=== PATIENT | female | born 1975 | race Caucasian/White ===

== ENCOUNTER 2018-07-28 13:27 | Emergency (ER) | payer SELFPAY ==
[~2018-07-28] VITALS: Ht 175.3 cm; Wt 64.0 kg
[2018-07-28 13:55] LABS: BASO # 0.1 x10^3/uL (0.0-0.2); BASO % 1 % (0-3); EOS # 0.1 x10^3/uL (0.0-0.7); EOS % 1 % (0-3); HEMATOCRIT 40.4 % (36.0-47.0); HEMOGLOBIN 13.3 g/dL (12.0-15.5); LYMPH # 1.7 x10^3/uL (1.0-4.8); LYMPH % 22 % (24-48); MEAN CORPUSCULAR HEMOGLOBIN 27 pg (25-35); MEAN CORPUSCULAR HGB CONC 33 g/dL (31-37); MEAN CORPUSCULAR VOLUME 82 fL (79-100); MONO # 0.5 x10^3/uL (0.0-1.1); MONO % 6 % (0-9); NEUT # 5.5 x10^3uL (1.8-7.7); NEUT % 70 % (31-73); PLATELET COUNT 385 x10^3/uL (140-400); RED BLOOD COUNT 4.96 x10^6/uL (3.50-5.40); RED CELL DISTRIBUTION WIDTH 16.2 % (11.5-14.5); WHITE BLOOD COUNT 7.9 x10^3/uL (4.0-11.0)
[2018-07-28 14:04] LABS: BACTERIA,URINE 0 /HPF (0-FEW); BILIRUBIN,URINE NEG (NEG); CLARITY,URINE CLEAR; COLOR,URINE STRAW; GLUCOSE,URINE NEG (NEG); NITRITE,URINE NEG (NEG); RBC,URINE 0 /HPF (0-2); SQUAMOUS EPITHELIAL CELL,UR OCC /LPF; UROBILINOGEN,URINE 0.2 mg/dL (0.2 mg/dL); WBC,URINE 0 /HPF (0-4)
[2018-07-28 14:06] LABS: PREG TEST PT QUAL NEGATIVE (NEG)
[2018-07-28 14:09] LABS: ALBUMIN 3.8 g/dL (3.4-5.0); CALCIUM 9.4 mg/dL (8.5-10.1); CREATININE 0.8 mg/dL (0.6-1.0); GFR 78.3; TOTAL BILIRUBIN 0.3 mg/dL (0.2-1.0); TOTAL PROTEIN 7.7 g/dL (6.4-8.2)
[2018-07-28] MEDS ORDERED: ONDANSETRON PF 4 MG/2 ML VIAL. IV ONE (14:20)
[2018-07-28] MEDS ORDERED: IOHEXOL 300 MG/ML 75 ML VIAL. IV ONE (14:30)
--- NOTE | 2018-07-28 14:57 | ED.ADGEN ---
Past History Past Medical History: Endometriosis, Migraines, Other Past Surgical History: Other Smoking: Non-smoker, Quit Less Than 1 Year Alcohol Use: None Drug Use: None Adult General Chief Complaint Chief Complaint Left lower quadrant pain HPI HPI Patient is a 42-year-old female presents with intermittent left lower quadrant/ pelvic pain 5 days. Reports increased frequency urgency. No flank pain, nausea vomiting, hematuria. No history of stones. Reports nausea, no vomiting. No constipation or diarrhea. No other acute symptoms or complaints.[] Review of Systems Review of Systems ROS as per HPI All other systems were reviewed and found to be within normal limits, except as documented in this note. Current Medications Current Medications Current Medications Medications (Trade) Dose Ordered Sig/Nasima Start Time Stop Time Status Last Admin Dose Admin Fentanyl Citrate (Fentanyl 2ml Vial) 50 mcg 1X ONCE 07/28/18 14:20 07/28/18 14:21 DC 07/28/18 13:59 50 MCG Iohexol (Omnipaque 300 Mg/ml) 75 ml 1X ONCE 07/28/18 14:30 07/28/18 14:31 DC 07/28/18 14:28 75 ML Ondansetron HCl (Zofran) 4 mg 1X ONCE 07/28/18 14:20 07/28/18 14:21 DC 07/28/18 13:58 4 MG Allergies Allergies Allergies Coded Allergies Type Severity Reaction Last Updated Verified Penicillins Allergy Unknown Shortness of Air 12/16/15 Yes Physical Exam Physical Exam Constitutional: Well developed, well nourished, moderate discomfort for pain [] HENT: Normocephalic, atraumatic, bilateral external ears normal, oropharynx moist, no oral exudates, nose normal. [] Eyes: PERRLA, EOMI, conjunctiva normal, no discharge. [] Neck: Normal range of motion, no tenderness, supple, no stridor. [] Cardiovascular:Heart rate regular rhythm, no murmur [] Lungs & Thorax: Bilateral breath sounds clear to auscultation. [] Abdomen: Bowel sounds normal, soft, LLQ pain/tenderness. [] Skin: Warm, dry, no erythema, no rash. [] Extremities: No tenderness, ROM intact, no edema. [] Neurologic: Alert and oriented X 3, normal motor function, normal sensory function, no focal deficits noted. [] Psychologic: Affect normal, judgement normal, mood normal. [] Current Patient Data Vital Signs Vital Signs Date Time Temp Pulse Resp B/P (MAP) Pulse Ox O2 Delivery O2 Flow Rate FiO2 07/28/18 15:36 67 18 113/73 (86) 98 Room Air 07/28/18 13:37 98.5 Lab Results Laboratory Tests Test 07/28/18 13:45 White Blood Count 7.9 x10^3/uL (4.0-11.0) Red Blood Count 4.96 x10^6/uL (3.50-5.40) Hemoglobin 13.3 g/dL (12.0-15.5) Hematocrit 40.4 % (36.0-47.0) Mean Corpuscular Volume 82 fL (79-100) Mean Corpuscular Hemoglobin 27 pg (25-35) Mean Corpuscular Hemoglobin Concent 33 g/dL (31-37) Red Cell Distribution Width 16.2 % (11.5-14.5) H Platelet Count 385 x10^3/uL (140-400) Neutrophils (%) (Auto) 70 % (31-73) Lymphocytes (%) (Auto) 22 % (24-48) L Monocytes (%) (Auto) 6 % (0-9) Eosinophils (%) (Auto) 1 % (0-3) Basophils (%) (Auto) 1 % (0-3) Neutrophils # (Auto) 5.5 x10^3uL (1.8-7.7) Lymphocytes # (Auto) 1.7 x10^3/uL (1.0-4.8) Monocytes # (Auto) 0.5 x10^3/uL (0.0-1.1) Eosinophils # (Auto) 0.1 x10^3/uL (0.0-0.7) Basophils # (Auto) 0.1 x10^3/uL (0.0-0.2) Urine Collection Type Unknown Urine Color Straw Urine Clarity Clear Urine pH 7.0 Urine Specific [place] 1.010 Urine Protein Neg (NEG-TRACE) Urine Glucose (UA) Neg mg/dL (NEG) Urine Ketones (Stick) Neg mg/dL (NEG) Urine Blood Neg (NEG) Urine Nitrite Neg (NEG) Urine Bilirubin Neg (NEG) Urine Urobilinogen Dipstick 0.2 mg/dL (0.2 mg/dL) Urine Leukocyte Esterase Neg (NEG) Urine RBC 0 /HPF (0-2) Urine WBC 0 /HPF (0-4) Urine Squamous Epithelial Cells Occ /LPF Urine Bacteria 0 /HPF (0-FEW) Sodium Level 139 mmol/L (136-145) Potassium Level 4.0 mmol/L (3.5-5.1) Chloride Level 103 mmol/L (98-107) Carbon Dioxide Level 28 mmol/L (21-32) Anion Gap 8 (6-14) Blood Urea Nitrogen 8 mg/dL (7-20) Creatinine 0.8 mg/dL (0.6-1.0) Estimated GFR (Cockcroft-Gault) 78.3 BUN/Creatinine Ratio 10 (6-20) Glucose Level 102 mg/dL (70-99) H Calcium Level 9.4 mg/dL (8.5-10.1) Total Bilirubin 0.3 mg/dL (0.2-1.0) Aspartate Amino Transferase (AST) 12 U/L (15-37) L Alanine Aminotransferase (ALT) 19 U/L (14-59) Alkaline Phosphatase 74 U/L (46-116) Total Protein 7.7 g/dL (6.4-8.2) Albumin 3.8 g/dL (3.4-5.0) Albumin/Globulin Ratio 1.0 (1.0-1.7) Lipase 98 U/L (73-393) Serum Test, Qualitative Negative (NEG) EKG EKG [] Radiology/Procedures Radiology/Procedures [CT abdomen pelvis: Short segment of mildly dilated small bowel left upper quadrant with filling defect concerning for transient intussusception, ] Course & Med Decision Making Course & Med Decision Making Pertinent Labs and Imaging studies reviewed. (See chart for details) [Persistent pain with findings of intussusception.] Final Impression Final Impression [1. Abdominal pain 2. Intussusception] Dragon Disclaimer Dragon Disclaimer This electronic medical record was generated, in whole or in part, using a voice recognition dictation system. MARK LAND DO Jul 28, 2018 14:57
--- NOTE | 2018-07-28 15:20 | RAD ---
CT of the abdomen and pelvis with contrast 07/28/2018 INDICATION: 1.5 weeks of left lower quadrant pain. COMPARISON STUDY: None FINDINGS: Multidetector CT imaging of the abdomen and pelvis was performed following the administration of IV contrast. The bilateral lung bases demonstrate emphysematous changes. Mild atelectasis is seen in lung bases as well. Liver and gallbladder are unremarkable. Spleen demonstrates changes of prior granulomatous disease. No acute pancreatic changes are identified. Scattered renal cysts are present bilaterally. Some cysts are too small to adequately be characterized. In the left upper quadrant of the abdomen there is a mildly dilated loop of small bowel. There is a filling defect within the loop of dilated bowel, and a small fluid level also appears to be the proximal side of it. Evaluation is limited without enteric contrast. (Coronal image 30, axial image 22, sagittal image 15). An incidental etiology is favored such as transient intussusception. However a mass cannot be completely excluded on the basis of this exam however. The large bowel is relatively decompressed. No evidence of appendicitis is seen. Fluid is present in the endometrial canal. Correlate with phase of menstrual cycle. Uterus and adnexa otherwise grossly unremarkable. Bladder is predominantly decompressed but otherwise grossly unremarkable. No gross pneumoperitoneum is identified. No significant free fluid is seen in the abdomen or pelvis. Impression: 1.Short segment mildly dilated loop of small bowel left upper quadrant. Filling defect. Evaluation limited without enteric contrast. Favor transient intussusception . A mass cannot be completely excluded on basis of this study. Consider repeat exam without additional tendon tear contrast or CT enterography. 2. No other acute intra-abdominal abnormality is seen CT DOSING PQRS STATEMENT: One or more of the following individualized dose reduction techniques were utilized for this examination: 1. Automated exposure control 2. Adjustment of the mA and/or kV according to patient size 3. Use of iterative reconstruction technique Electronically signed by: Emiliano Nichols MD (07/28/2018 3:16 PM) [id number]
[2018-07-28 15:36] VITALS: BP 113/73
== END 2018-07-28 18:09 | disposition short-term general hospital (02) ==
LOC: ER 13:27
DX: K56.1 Intussusception (principal); R10.32 Left lower quadrant pain; R10.2 Pelvic and perineal pain; G43.909 Migraine, unspecified, not intractable, without status migrainosus; Z87.891 Personal history of nicotine dependence; Z88.0 Allergy status to penicillin
CPT/HCPCS: 36415; 74177; 80053; 81001; 83690; 84703; 85025; 96374; 96375; 99285; J2405; J3010; Q9967

== ENCOUNTER 2021-09-09 12:19 | Emergency (ER) | payer SELFPAY ==
[~2021-09-09] VITALS: Ht 175.3 cm; Wt 63.6 kg
[2021-09-09] MEDS ORDERED: MORPHINE SULFATE 4 MG/ML DISP.SYRIN. IV PRN (12:45)
[2021-09-09] MEDS ORDERED: ONDANSETRON PF 4 MG/2 ML VIAL. IVP ONE (12:45)
[2021-09-09 12:56] LABS: BASO # 0.1 x10^3/uL (0.0-0.2); BASO % 1 % (0-3); EOS # 0.4 x10^3/uL (0.0-0.7); EOS % 5 % (0-3); HEMATOCRIT 43.7 % (36.0-47.0); HEMOGLOBIN 14.5 g/dL (12.0-15.5); LYMPH # 2.9 x10^3/uL (1.0-4.8); LYMPH % 39 % (24-48); MEAN CORPUSCULAR HEMOGLOBIN 29 pg (25-35); MEAN CORPUSCULAR HGB CONC 33 g/dL (31-37); MEAN CORPUSCULAR VOLUME 86 fL (79-100); MONO # 0.5 x10^3/uL (0.0-1.1); MONO % 7 % (0-9); NEUT # 3.7 x10^3uL (1.8-7.7); NEUT % 49 % (31-73); PLATELET COUNT 325 x10^3/uL (140-400); RED BLOOD COUNT 5.06 x10^6/uL (3.50-5.40); WHITE BLOOD COUNT 7.5 x10^3/uL (4.0-11.0)
--- NOTE | 2021-09-09 12:59 | EKG ---
[address] [address] Test Date: 2021-09-09 Test Time: 12:23:52 Pat Name: ALYSA REHMAN Department: Room: Gender: F Grid Inspector: ANA ROSA : 1975 Requested By: ROSE RIVERA Order Number: [id number] Reading MD: Dameon Thompson Measurements Intervals [place] Rate: 79 P: 62 [place]: 182 QRS: 50 QRSD: 84 T: 63 QT: 364 QTc: 418 Interpretive Statements SINUS RHYTHM NO SPECIFIC ECG ABNORMALITIES RI6.02 No previous ECG available for comparison Electronically Signed On 09-11-2021 9:30:34 BOOM MAN by Dameon Thompson
[2021-09-09 13:03] LABS: CALCIUM 9.4 mg/dL (8.5-10.1); CREATININE 0.8 mg/dL (0.6-1.0); GFR 77.2; POTASSIUM 3.5 mmol/L (3.5-5.1)
--- NOTE | 2021-09-09 13:08 | RAD ---
INDICATION: Reason: cp / Spl. Instructions: / History: COMPARISON: None. FINDINGS: Single view of chest obtained. Disorganized pulmonary markings bilaterally with mild interstitial opacities. Patchy opacities at the lung bases. Air underneath the left hemidiaphragm. Cardiac silhouette is unremarkable IMPRESSION: * Patchy opacities at the lung bases which could be from infiltrate or edema. * Interstitial opacities bilaterally. Possible causes include interstitial infiltrate, edema or inte rstitial lung disease and would correlate as to whether the patient has any known history of intersti tial lung disease. * Air underneath the left hemidiaphragm. Given the location the most common cause would be air withi n the stomach bubble or bowel but if additional clarification is desired lateral radiograph or CT cou ld confirm. Electronically signed by: Raymond Lozano MD (09/09/2021 1:05 PM) [id number]
[2021-09-09 13:16] LABS: ALBUMIN 3.7 g/dL (3.4-5.0); ALBUMIN/GLOBULIN RATIO 1.1 (1.0-1.7); TOTAL BILIRUBIN 0.3 mg/dL (0.2-1.0); TOTAL PROTEIN 7.2 g/dL (6.4-8.2)
--- NOTE | 2021-09-09 13:34 | PHYS DOC ---
Past History Past Medical History: Endometriosis, Migraines, Other (ROSE RIVERA APRN) Past Surgical History: No Surgical History (ROSE RIVERA APRN) Smoking: Non-smoker, Quit Less Than 1 Year Alcohol Use: None Drug Use: None (ROSE RIVERA APRN) General Adult EDM: Chief Complaint: CHEST PAIN HPI: HPI: Patient is a 45-year-old female presents with mid sternal chest pain. Patient states that pain started a week ago. Pain is worse with movement, deep breathing, laying down. Pain is also reproducible. Denies recent illness or i njury. Denies taking anything at home for pain. History of migraines. Patient recently quit smoking. (ROSE RIVERA APRN) Review of Systems: Review of Systems: ROS At least 10 ROS systems have been reviewed and are negative except as documented in the HPI. General: Negative except as outlined in HPI above. Skin: Negative except as outlined in HPI above. HEENT: Negative except as outlined in HPI above. Neck: Negative except as outlined in HPI above. Respiratory: Negative except as outlined in HPI above.. Cardiovascular: Negative except as outlined in HPI above. Abdomen: Negative except as outlined in HPI above. : Negative except as outlined in HPI above. Back/MSK: Negative except as outlined in HPI above. Neuro: Negative except as outlined in HPI above. Psych: Negative except as outlined in HPI above. (ROSE RIVERA APRN) Current Medications: Current Meds: Current Medications Medications (Trade) Dose Ordered Sig/Nasima Start Time Stop Time Status Last Admin Dose Admin Morphine Sulfate (Morphine 4mg Syringe) 4 mg PRN 1X PRN 09/09/21 12:45 09/09/21 13:15 4 MG Ondansetron HCl (Zofran) 4 mg 1X ONCE 09/09/21 12:45 09/09/21 13:07 DC 09/09/21 13:15 4 MG (ROSE RIVERA APRN) Allergies: Allergies: Allergies Coded Allergies Type Severity Reaction Last Updated Verified Penicillins Allergy Unknown Shortness of Air 12/16/15 Yes (ROSE RIVERA APRN) Physical Exam: PE: Constitutional: Well developed, well nourished, no acute distress, non-toxic appearance. [] HENT: Normocephalic, atraumatic, bilateral external ears normal, oropharynx moist, no oral exudates, nose normal. [] Eyes: PERRLA, EOMI, conjunctiva normal, no discharge. [] Neck: Normal range of motion, no tenderness, supple, no stridor. [] Cardiovascular:Heart rate regular rhythm, no murmur [] Lungs & Thorax: Bilateral breath sounds clear to auscultation [] Abdomen: Bowel sounds normal, soft, no tenderness, no masses, no pulsatile masses. [] Skin: Warm, dry, no erythema, no rash. [] Back: No tenderness, no CVA tenderness. [] Extremities: No tenderness, no cyanosis, no clubbing, ROM intact, no edema. [] Neurologic: Alert and oriented X 3, normal motor function, normal sensory function, no focal deficits noted. [] Psychologic: Affect normal, judgement normal, mood normal. [] (ROSE RIVERA APRN) Current Patient Data: Labs: Laboratory Tests Test 09/09/21 12:36 White Blood Count 7.5 x10^3/uL (4.0-11.0) Red Blood Count 5.06 x10^6/uL (3.50-5.40) Hemoglobin 14.5 g/dL (12.0-15.5) Hematocrit 43.7 % (36.0-47.0) Mean Corpuscular Volume 86 fL (79-100) Mean Corpuscular Hemoglobin 29 pg (25-35) Mean Corpuscular Hemoglobin Concent 33 g/dL (31-37) Red Cell Distribution Width 16.0 % (11.5-14.5) H Platelet Count 325 x10^3/uL (140-400) Neutrophils (%) (Auto) 49 % (31-73) Lymphocytes (%) (Auto) 39 % (24-48) Monocytes (%) (Auto) 7 % (0-9) Eosinophils (%) (Auto) 5 % (0-3) H Basophils (%) (Auto) 1 % (0-3) Neutrophils # (Auto) 3.7 x10^3uL (1.8-7.7) Lymphocytes # (Auto) 2.9 x10^3/uL (1.0-4.8) Monocytes # (Auto) 0.5 x10^3/uL (0.0-1.1) Eosinophils # (Auto) 0.4 x10^3/uL (0.0-0.7) Basophils # (Auto) 0.1 x10^3/uL (0.0-0.2) Sodium Level 138 mmol/L (136-145) Potassium Level 3.5 mmol/L (3.5-5.1) Chloride Level 103 mmol/L (98-107) Carbon Dioxide Level 28 mmol/L (21-32) Anion Gap 7 (6-14) Blood Urea Nitrogen 15 mg/dL (7-20) Creatinine 0.8 mg/dL (0.6-1.0) Estimated GFR (Cockcroft-Gault) 77.2 BUN/Creatinine Ratio 19 (6-20) Glucose Level 96 mg/dL (70-99) Calcium Level 9.4 mg/dL (8.5-10.1) Total Bilirubin 0.3 mg/dL (0.2-1.0) Aspartate Amino Transferase (AST) 14 U/L (15-37) L Alanine Aminotransferase (ALT) 23 U/L (14-59) Alkaline Phosphatase 81 U/L (46-116) XZ-Gci-G-Type Natriuretic Peptide 71 pg/mL (0-124) Total Protein 7.2 g/dL (6.4-8.2) Albumin 3.7 g/dL (3.4-5.0) Albumin/Globulin Ratio 1.1 (1.0-1.7) Vital Signs: Vital Signs Date Time Temp Pulse Resp B/P (MAP) Pulse Ox O2 Delivery O2 Flow Rate FiO2 09/09/21 13:15 14 97 09/09/21 12:23 98.1 79 129/83 (98) Room Air (ROSE RIVERA APRN) EKG: EKG: Sinus rhythm. Heart rate 79 bpm. No STEMI. (ROSE RIVERA CNC TECHNICIAN) Radiology/Procedures: Radiology/Procedures: []INDICATION: Reason: cp / Spl. Instructions: / History: COMPARISON: None. FINDINGS: Single view of chest obtained. Disorganized pulmonary markings bilaterally with mild interstitial opacities. Patchy opacities at the lung bases. Air underneath the left hemidiaphragm. Cardiac silhouette is unremarkable IMPRESSION: * Patchy opacities at the lung bases which could be from infiltrate or edema. * Interstitial opacities bilaterally. Possible causes include interstitial infiltrate, edema or interstitial lung disease and would correlate as to whether the patient has any known history of interstitial lung disease. * Air underneath the left hemidiaphragm. Given the location the most common cause would be air within the stomach bubble or bowel but if additional clarification is desired lateral radiograph or CT could confirm. Electronically signed by: Raymond Lozano MD (09/09/2021 1:05 PM) [id number] (ROSE RIVERA APRN) Heart Score: C/O Chest Pain: No Risk Factors: Risk Factors: DM, Current or recent (<one month) smoker, HTN, HLP, family history of CAD, obesity. Risk Scores: Score 0 - 3: 2.5% MACE over next 6 weeks - Discharge Home Score 4 - 6: 20.3% MACE over next 6 weeks - Admit for Clinical Observation Score 7 - 10: 72.7% MACE over next 6 weeks - Early Invasive Strategies (ROSE RIVERA APRN) Course & Med Decision Making: Course & Med Decision Making Pertinent Labs and Imaging studies reviewed. (See chart for details) [] 45-year-old female presents with midsternal chest pain. All labs unremarkable. EKG shows sinus rhythm. No STEMI. Chest x-ray shows chronic lung disease. Patient is a current smoker. Patient most likely has pleuritic chest pain. Discussed results with patient. Advised patient to follow-up with her PCP if symptoms do not improve. Advised patient to take ibuprofen at home. Sending patient home with hydrocodone until she can follow-up with her PCP. Patient is hemodynamically stable upon disposition. (ROSE RIVERA APRN) Course & Med Decision Making I was the Attending physician on the above date of service of this patient. This patient was evaluated, examined, treated, and dispositioned from the emergency department by the mid-level practitioner. Although I was working at the time , no assistance was requested. Electronically signed, Karolina Simon DO (KAROLINA SIMON DO) Pricila Disclaimer: Pricila Disclaimer: This electronic medical record was generated, in whole or in part, using a voice recognition dictation system. (ROSE RIVERA APRN) Departure Departure: Impression: Primary Impression: Pleuritic chest pain Disposition: HOME / SELF CARE / HOMELESS Condition: STABLE Referrals: MARCIANO CALZADA (PCP) Patient Instructions: Pleurisy, [id number] Additional Instructions: I am sending you home with pain medication until you can follow-up with your PCP. You can also take ibuprofen for pain. Call your PCP on Saturday make a follow-up appointment. Return to the emergency room with worsening symptoms or concerns. EMERGENCY DEPARTMENT GENERAL DISCHARGE INSTRUCTIONS Thank you for coming to [facility] (ED) today and trusting us with you care. We trust that you had a positivie experience in our Emergency Department. If you wish to speak to the department management, you may call the director at [phone]. YOUR FOLLOW UP INSTRUCTIONS ARE FOLLOWS: 1. Do you have a private Doctor? If you do not have a private doctor, please ask for a resource list of physicians or clinics that may be able to assist you with follow up care. 2. The Emergency Physician has interpreted your x-rays. The X-Ray specialist will also review them. If there is a change in the findings, you will be notified in 48 hours when at all possible. 3. A lab test or culture has been done, your results will be reviewed and you will be notified if you need a change in treatment. ADDITIONAL INSTRUCTIONS AND INFORMATION: 1. Your care today has been supervised by a physician who is specially trained in emergency care. Many problems require more than one evaluation for a complete diagnosis and treatment. We recommend that you schedule your follow up appointment as recommended to ensure complete treatment of you illness or injury. If you are unable to obtain follow up care and continue to have a problem, or if your condition worsens, we recommend that you return to the ED. 2. We are not able to safely determine your condition over the phone nor are we able to give sound medical advice over the phone. For these safety reasons, if you call for medical advice we will ask you to come to the ED for further evaluation. 3. If you have any questions regarding these discharge instructions please call the ED at [phone]. SAFETY INFORMATION: In the interest of safety, wellness, and injury prevention; we encourage you to wear your sealbelt, if you smoke; quite smoking, and we encourage family to use a protective helmet for bicycling and other sporting events that present an increased risk for head injury. IF YOUR SYMPTOMS WORSEN OR NEW SYMPTOMS DEVELOP, OR YOU HAVE CONCERNS ABOUT YOUR CONDITION; OR IF YOUR CONDITION WORSENS WHILE YOU ARE WAITING FOR YOUR FOLLOW UP APPOINTMENT; EITHER CONTACT YOUR PRIMARY CARE DOCTOR, THE PHYSICIAN WHOSE NAME AND NUMBER YOU WERE GIVEN, OR RETURN TO THE ED IMMEDIATELY. Scripts Hydrocodone Bit/Acetaminophen (HYDROCODONE-APAP 5-325 ) 1 Each Tablet 1 TAB PO PRN Q6HRS PRN for PAIN for 3 Days, #12 TAB 0 Refills Prov: ROSE RIVERA APRN 09/09/21 ROSE RIVERA APRN Sep 09, 2021 13:34 KAROLINA SIMON DO Sep 13, 2021 00:30
[2021-09-09 13:56] LABS: BACTERIA,URINE 0 /HPF (0-FEW); BILIRUBIN,URINE NEG (NEG); CLARITY,URINE CLEAR; COLOR,URINE YELLOW; GLUCOSE,URINE NEG (NEG); NITRITE,URINE NEG (NEG); RBC,URINE 0 /HPF (0-2); UROBILINOGEN,URINE 0.2 mg/dL (0.2 mg/dL); WBC,URINE 0 /HPF (0-4)
[2021-09-09] MEDS ORDERED: HYDR-2155 PO (15:09)
[2021-09-09 15:42] VITALS: BP 116/71
== END 2021-09-09 15:45 | disposition home or self-care (01) ==
LOC: ER 12:19
DX: R07.81 Pleurodynia (principal); R07.2 Precordial pain; G43.909 Migraine, unspecified, not intractable, without status migrainosus; Z87.891 Personal history of nicotine dependence; Z88.0 Allergy status to penicillin
CPT/HCPCS: 36415; 71045; 80053; 81001; 81025; 83880; 84484; 85025; 93005; 96374; 96375; 99285; J2270; J2405